=== PATIENT | male | born 1935 | race Caucasian/White ===

== ENCOUNTER 2016-08-06 16:51 | Emergency (ER) ==
[2016-08-06] MEDS ORDERED: ZOFRAN IV ONE ×2 (17:19→20:56)
--- NOTE | 2016-08-06 17:28 | PROVIDER DOCUMENTATION ---
HPI-Male Problem <Ramiro Carl - Last Filed: 08/06/16 22:12> <Hank Hernandez - Last Filed: 08/06/16 23:03> - General Source: patient, family - History of Present Illness-Male Location of Complaint: reports: left flank Radiation: reports: scrotal Quality of Pain: reports: sharp Onset/Duration: reports: 1-3 hours ago Timing: reports: still present Urinary Symptoms: reports: no symptoms Associated Symptoms: reports: other (prior prostate CA, s/p prostatectomy) Associated Symptoms: reports: vomiting <Lianet Hammonds - Last Filed: 08/07/16 11:23> - General Chief Complaint: Flank Pain Stated Complaint: SEVERE ABD PAIN,VOMITING Time Seen by Provider: 08/06/16 17:05 Allergies/Adverse Reactions: Patient Allergies Allergy/AdvReac Type Severity Reaction Status Date / Time No Known Allergies Allergy Verified 08/06/16 17:18 Home Medications: Home Medication List Medication Instructions Recorded Confirmed Last Taken Type Aspirin 81 mg PO DAILY 02/11/15 08/06/16 08/06/16 07:00 History Esomeprazole [Nexium] 40 mg PO BID 02/11/15 08/06/16 08/06/16 07:00 History Hydrocortisone AC/Lidocaine 1 each RC DIRECTED PRN PRN 02/11/15 03/07/16 History [Anamantle Hc Forte Cream Kit] Metformin [Glucophage] 500 mg PO BID 02/11/15 08/06/16 08/06/16 07:00 History Multivitamin [Multi-Vitamin Daily] 1 each PO DAILY 02/11/15 08/06/16 08/06/16 07 :00 History Warfarin [Coumadin] 2.5 mg PO QHS 02/11/15 08/06/16 08/05/16 20:00 History Warfarin [Coumadin] 5 mg PO QHS 02/11/15 08/06/16 08/04/16 20:00 History SIMVAstatin [Zocor] 40 mg PO QHS #30 tablet 02/12/15 08/06/16 08/05/16 20:00 Rx Fluticasone 50 Mcg Nasal Drag[place] 2 spray NEVAEH HS #0 bottle 03/09/16 08/06/16 20:00 Rx [Flonase] Ciprofloxacin HCl [Cipro] 500 mg PO BID #14 tablet 08/06/16 Unknown Rx Hydrocodone/Acetaminophen [[place] 1 each PO TID PRN PRN #15 tablet 08/06/16 Unknown Rx 7.5-325 Tablet] Ondansetron Odt [Zofran 4 mg Odt] 4 mg PO Q6H PRN PRN #10 tablet 08/06/16 Unknown Rx Tamsulosin [Flomax] 0.4 mg PO DAILY #7 capsule 08/06/16 Unknown Rx - History of Present Illness-Male Nature of Presenting Problem: 81 yo with sudden onset of L flank pain radiating down to the groin. Started about 3:30 pm today. No prior episodes of flank pain, no hx kidney stones. Vomited x1. Long standing problems with nausea. (Lianet Hammonds) Review of Systems - Adult - REVIEW OF SYSTEMS - ADULT Constitutional: reports: no symptoms reported Eyes: reports: no symptoms reported, other (s/p cataract repair) Ears, Nose, Mouth & Throat: reports: no symptoms reported Cardiovascular: reports: no symptoms reported Respiratory: reports: no symptoms reported Gastrointestinal: reports: abdominal pain, nausea, vomiting Genitourinary: reports: flank pain Neurological: reports: other (multipe prior CVAs) Psychiatric: reports: no symptoms reported <Lianet Hammonds - Last Filed: 08/07/16 11:23> Past History - Adult - PAST MEDICAL HISTORY-ADULT Review of Records: reports: Medications Reviewed Major Childhood Illnesses: reports: denies history Cardiovascular: reports: A-Fib, CAD, HTN Respiratory: reports: denies history Gastrointestinal: reports: GERD (Stern's Esophagus), ulcer Obstetrical/Gynecological: reports: denies history Genitourinary: reports: prostate cancer Musculoskeletal: reports: denies history Neurological: reports: CVA, Seizures/Epilepsy, TIA Endocrine/Immune: reports: Diabetes Other Conditions: reports: deaf/hard of hearing - PRIOR SURGERIES/PROCEDURES Surgical/Procedure History: reports: CABG, cardiac stent, tonsillectomy, other ( sinus, TURP, quad bypass) - IMMUNIZATION STATUS Childhood Immunizations: See Nurse Assessment Flu Vaccine: See Nurse Assessment - FAMILY HISTORY Family History: reviewed, not pertinent <Lianet Hammonds - Last Filed: 08/07/16 11:23> Physical Exam-General - PHYSICAL EXAM-ADULT Initial Vital Signs Reviewed: Yes - CONSTITUTIONAL General Appearance: alert, moderate distress - EYES Eyes: PERRL/EOMI - HEAD, EARS, NOSE, MOUTH & THROAT HENMT: normocephalic/atraumatic, normal ENT inspection - NECK Neck: non-tender, full range of motion, supple - RESPIRATORY Respiratory: chest non-tender, crackles (at bases bilaterally) <Lianet Hammonds - Last Filed: 08/07/16 11:23> Progress - REASSESSMENT Reassessment #1 Time Reassessed: 22:12 (pt aware of ct report) Status: improving - CT/MRI 1 CT Study: Renal Stone Impression: Abnormal (non obst renal calculi//gallstone w/no cholecystitis/// small stable lower aorta 3.1 cm /some stranding lt kidney), See EMR Report <Ramiro Carl - Last Filed: 08/06/16 22:12> - REASSESSMENT Reassessment #2 Time Reassessed: 22:35 Status: improving (Dr. Carl discussed results of pt's labs/CT and POC for pt's discharge.) - CT/MRI 2 CT Study: Abdomen, Pelvis Impression: See EMR Report (Ucosal thickening and mild inflammatory stranding associated with the L renal pelvis and L ureter suggesting possible infection; Nonobstructing nephrolithiasis bilaterally; Other incidental/nonacute findings detailed in report.) CT Results: See report - CHANGE OF SHIFT REPORT (ED Provider) Report Given and Care Transferred to:: Dr. Carl Time of Transfer: 20:00 Items Pending: CT/MRI Results <Hank Hernandez - Last Filed: 08/06/16 23:03> <Lianet Hammonds - Last Filed: 08/07/16 11:23> - PLAN OF CARE/RESULTS Progress/Plan/Lab Results: Vital Signs - 24 hr 08/06/16 16:58 Temperature 97.3 F L Pulse Rate 61 Respiratory 20 Rate Blood Pressure 136/74 O2 Sat by Pulse 96 Oximetry Orders Category Date Time Status Saline Loc DIRECTED Care 08/06/16 17:17 Active NPO Diet 08/06/16 17:17 Active CHEST-PORTABLE [RAD] Stat Exams 08/06/16 17:[address] ABD/PELVIS W/ IV CONT ONLY [CT] Stat Exams 08/06/16 18:25 Draft AMYLASE [CHEM] Stat Lab 08/06/16 17:36 Completed CBC WITH ELECTRONIC DIFF [HEME] Stat Lab 08/06/16 17:36 Completed COMPREHENSIVE METABOLIC PANEL [CHEM] Stat Lab 08/06/16 17:36 Completed LIPASE [CHEM] Stat Lab 08/06/16 17:36 Completed PROTIME WITH INR [COAG] Stat Lab 08/06/16 17:36 Completed URINALYSIS W/POSS RFLX CULT [URINALYSIS] Stat Lab 08/06/16 20:30 Completed 0.9% Sodium Chloride Inj [Ns] 500 ml Med 08/06/16 19:54 Discontinued IV 999 mls/hr Hydromorphone [Dilaudid] Med 08/06/16 20:56 Discontinued 1 mg IV NOW ONE Morphine Med 08/06/16 18:21 Discontinued 2 mg IV NOW ONE Ondansetron [Zofran] Med 08/06/16 17:19 Discontinued 4 mg IV NOW ONE Ondansetron [Zofran] Med 08/06/16 20:56 Discontinued 4 mg IV NOW ONE EKG [EKG] Stat Ther 08/06/16 17:18 Ordered Laboratory Tests 08/06/16 08/06/16 08/06/16 17:36 17:36 17:36 WBC 5.79 RBC 4.01 L Hgb 13.2 L Hct 39.8 L MCV 99.3 H MCH 32.9 H MCHC 33.2 RDW Std Deviation 13.3 Plt Count 162 MPV 11.8 H Neut % (Auto) 61.2 Lymph % (Auto) 29.4 Coal % (Auto) 8.5 Eos % (Auto) 0.7 Baso % (Auto) 0.2 Neut # (Auto) 3.55 Lymph # (Auto) 1.70 Coal # (Auto) 0.49 Eos # (Auto) 0.04 Baso # (Auto) 0.01 PT 25.6 H INR 2.39 Sodium 138 Potassium 3.8 Chloride 101 Carbon Dioxide 22 L Anion Gap 15 BUN 24 H Creatinine 1.1 Estimated GFR/1.73 m2 > 60 BUN/Creatinine Ratio 22 Glucose 193 H Calculated Osmolality 285 Calcium 9.1 Total Bilirubin 0.71 AST 32 ALT 37 Alkaline Phosphatase 71 Total Protein 6.8 Albumin 3.9 Globulin 2.9 Albumin/Globulin Ratio 1.3 Amylase 114 Lipase Urine Source Urine Color Urine Turbidity Urine pH Ur Specific [place] Urine Protein Ur Glucose (Stick) Ur Ketones (Stick) Urine Blood Urine Nitrite Urine Bilirubin Urobilinogen Dipstick Urine Leukocytes Urine WBC (Auto) Urine RBC (Auto) U Epithel Cells (Auto) Urine Bacteria (Auto) 08/06/16 08/06/16 17:36 20:30 WBC RBC Hgb Hct MCV MCH MCHC RDW Std Deviation Plt Count MPV Neut % (Auto) Lymph % (Auto) Coal % (Auto) Eos % (Auto) Baso % (Auto) Neut # (Auto) Lymph # (Auto) Coal # (Auto) Eos # (Auto) Baso # (Auto) PT INR Sodium Potassium Chloride Carbon Dioxide Anion Gap BUN Creatinine Estimated GFR/1.73 m2 BUN/Creatinine Ratio Glucose Calculated Osmolality Calcium Total Bilirubin AST ALT Alkaline Phosphatase Total Protein Albumin Globulin Albumin/Globulin Ratio Amylase Lipase 13 Urine Source CLEAN CATCH Urine Color YELLOW Urine Turbidity CLEAR Urine pH 5.5 Ur Specific [place] 1.021 Urine Protein 50 A Ur Glucose (Stick) 500 A Ur Ketones (Stick) TRACE A Urine Blood LARGE A Urine Nitrite NEGATIVE Urine Bilirubin NEGATIVE Urobilinogen Dipstick NORMAL Urine Leukocytes NEGATIVE Urine WBC (Auto) <10 Urine RBC (Auto) TNTC A U Epithel Cells (Auto) <10 Urine Bacteria (Auto) NEGATIVE (Hank Hernandez) Departure - Departure Time of Disposition Order: 22:14 Certified Medical Emergency: Emergent <Ramiro Carl - Last Filed: 08/06/16 22:12> - Departure Time of Disposition Order: 22:21 Certified Medical Emergency: Emergent <Hank Hernandez - Last Filed: 08/06/16 23:03> - Departure Time of Disposition Order: 23:00 <Lianet Hammonds - Last Filed: 08/07/16 11:23> - Departure DIAGNOSIS: Renal colic, Back pain of thoracolumbar region Disposition: HOME 01 Condition: Stable Additional Instructions: ED Follow Up Instructions: You have been treated by a care provider in the Emergency Department. These instructions are being provided to you so you can have an understanding of how to care for yourself upon discharge. Upon discharge from the Emergency Department, you are responsible for making arrangements for follow-up care by a physician of your choice. Take all prescribed medications as directed. Return to the Emergency Department immediately for any new or worsening symptoms. You may call the Physician Referral phone number at [phone] to obtain a list of Physicians who are taking new patients. Prescriptions: Ciprofloxacin HCl [Cipro] 500 mg PO BID #14 tablet Tamsulosin [Flomax] 0.4 mg PO DAILY #7 capsule Hydrocodone/Acetaminophen [[place] 7.5-325 Tablet] 1 each PO TID PRN PRN #15 tablet PRN Reason: Pain Ondansetron Odt [Zofran 4 mg Odt] 4 mg PO Q6H PRN PRN #10 tablet PRN Reason: Nausea And Vomiting Referrals: Gerardo Santana MD [Primary Care Provider] - Renetta Richey MD [STAFF PHYSICIAN] - Marcello Lawrence MD [STAFF PHYSICIAN] - Honorio Zeng MD [STAFF PHYSICIAN] - Instructions: Renal Colic, [id number], Back Pain, Adult, [id number] Attestation - Scribe Verification/Attestation Scribe:: Hank Hernandez Acting as Scribe for:: Ramiro Carl Scribe documention review:: This chart was documented by a scribe and accurately reflects the service the provider performed and the decisions made by the provider. <Hank Hernandez - Last Filed: 08/06/16 23:03> Physician Attestation
[2016-08-06 17:52] LABS: MANUAL DIFF NEEDED? NO
[2016-08-06 18:02] LABS: BASO% 0.2 % (0.0-0.8); EOS# 0.04 X1000 (0.0-0.7); EOS% 0.7 % (0.0-10.0); HEMATOCRIT 39.8 % (42.0-52.0); HEMOGLOBIN 13.2 g/dL (14.0-18.0); LYMPH% 29.4 % (20.5-51.1); MCH 32.9 PG (27-31); MCHC 33.2 g/dL (33-37); MCV 99.3 FL (81-99); MONO# 0.49 X1000 (0.11-0.59); MONO% 8.5 % (1.7-9.3); MPV 11.8 FL (7.4-10.4); NEUT% 61.2 % (42.2-75.2); PLT 162 X1000 (130-400); RBC 4.01 XMIL (4.7-6.1)
[2016-08-06] MEDS ORDERED: MORPHINE IV ONE (18:21)
[2016-08-06 18:24] LABS: AGAP 15; ALBUMIN 3.9 g/dL (3.5-5.0); ALKALINE PHOSPHATASE 71 U/L (32-122); AMYLASE 114 U/L (20-200); BUN 24 mg/dL (8-22); CALCIUM 9.1 mg/dL (8.8-10.2); CHLORIDE 101 mmol/L (98-107); COSMO 285; GOT 32 U/L (10-34); GPT 37 U/L (10-44); POTASSIUM 3.8 mmol/L (3.5-5.1); SODIUM 138 mmol/L (136-145); TCO2 22 mmol/L (25-35); TOTAL BILIRUBIN 0.71 mg/dL (0.20-1.00); TOTAL PROTEIN 6.8 g/dL (6.3-8.3)
--- NOTE | 2016-08-06 18:33 | ED EKG INTERP ---
EKG Interpretation - EKG Time of EKG reading by physician:: 17:33 EKG Read and Signed by:: Edin Snow EKG Interpretation (*Must complete 3 of following elements*): Normal Rate: 61 Rhythm: NSR Attestation - Scribe Verification/Attestation Scribe:: Hank Hernandez Acting as Scribe for:: Edin Snow Scribe documention review:: This chart was documented by a scribe and accurately reflects the service the provider performed and the decisions made by the provider. Physician Attestation
[2016-08-06 18:52] LABS: INR 2.39; PROTIME 25.6 Seconds (9.2-11.7)
[2016-08-06] MEDS ORDERED: NS 500 ML IV ONE (19:54)
[2016-08-06 20:30] LABS: URINE CULTURE NEEDED? NO; URINE MICRO REVIEW NEEDED? NO; URINE SOURCE CLEAN CATCH
[2016-08-06 20:46] LABS: UR EPITHELIAL CELLS <10 /HPF (<10); URINE BACTERIA NEGATIVE /HPF; URINE RBC TNTC /HPF (<10); URINE WBC <10 /HPF (<10)
[2016-08-06 20:53] LABS: BILIRUBIN URINE NEGATIVE (NEGATIVE); COLOR YELLOW
[2016-08-06 20:54] LABS: BLOOD URINE LARGE (NEGATIVE); LEUKOCYTES URINE NEGATIVE (NEGATIVE); NITRITE URINE NEGATIVE (NEGATIVE); PH URINE 5.5; PROTEIN URINE 50 mg/dL (NEGATIVE); SP GRAVITY URINE 1.021; UROBILINOGEN URINE NORMAL (NORMAL)
[2016-08-06] MEDS ORDERED: DILAUDID IV ONE (20:56)
--- NOTE | 2016-08-06 21:44 | Diag Imaging Result Document ---
PROCEDURE NAME: CT ABD/PELVIS W/ IV CONT ONLY - 08/06/2016 CT ABDOMEN AND PELVIS WITH IV CONTRAST: COMPARISON: None available. FINDINGS: There are fibrotic changes at the lung bases. There is a moderate to large sized hiatal hernia. There is suggestion of diffuse hepatic steatosis. The adrenal glands are somewhat thickened suggesting mild hyperplasia. There are a few small calcified stones layering in the gallbladder lumen. There is no evidence of cholecystitis by CT. There are couple renal cysts bilaterally. There are several nonobstructing intrarenal stones bilaterally. There appears to be mucosal thickening involving the left renal pelvis, which is mildly prominent. There is also stranding along the course of the left ureter. No well-defined stone can be identified. Consider urinary tract infection. The urinary bladder is grossly unremarkable, however. There is a tiny left inguinal hernia that contains only fat. There is no evidence of bowel obstruction. There has been a previous prostatectomy. There is a small infrarenal abdominal aortic aneurysm measuring up to 3.1 cm. 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 There are several wedge deformities involving the spine of unknown acuity but probably chronic. This includes, L3, L4, and T12. IMPRESSION: 1. Mucosal thickening and mild inflammatory stranding associated with the left renal pelvis and left ureter suggesting possible infection. 2. Nonobstructing nephrolithiasis bilaterally. 3. Other incidental/nonacute findings detailed above.
[2016-08-06 22:27] LABS: GLUCOSE URINE 500 mg/dL (NEGATIVE); TURBIDITY URINE HAZY (CLEAR)
[2016-08-06 22:45] VITALS: BP 129/88
--- NOTE | 2016-08-06 22:52 | Diag Imaging Result Document ---
PROCEDURE NAME: CHEST-PORTABLE - 08/06/2016 FRONTAL RADIOGRAPH OF THE CHEST: COMPARISON: 03/07/2016. FINDINGS: There is stable prominent lung markings at the left lung base suggesting fibrosis most likely. The lungs are clear otherwise. There is no definite pleural fluid collection. Cardiac silhouette and central vasculature are grossly unremarkable. IMPRESSION: Stable interstitial thickening at the left lung base suggesting likely fibrosis.
[2016-08-06] MEDS ORDERED: ZOFRAN ODT PO ONE (22:54)
[2016-08-06] MEDS ORDERED: PERCOCET-10 PO ONE (22:54)
--- NOTE | 2016-08-08 06:35 | EKG Report ---
Test Performed on : 08/06/2016 5:33:08 PM Test Reason : abdominal pain Blood Pressure : / mmHG Vent. Rate : 061 BPM Atrial Rate : 061 BPM P-R Int : 198 ms QRS Dur : 090 ms QT Int : 430 ms P-R-T Axes : 048 043 073 degrees QTc Int : 432 ms Normal sinus rhythm. Normal ECG When compared with ECG of 07-MAR-2016 13:52, No significant change was found Unconfirmed Result
== END 2016-08-06 23:19 | disposition home or self-care (01) ==
LOC: ED 16:51
DX: N20.0 Calculus of kidney (principal); M54.6 Pain in thoracic spine; M54.5 Low back pain; R10.9 Unspecified abdominal pain; R10.30 Lower abdominal pain, unspecified; R11.2 Nausea with vomiting, unspecified; I48.91 Unspecified atrial fibrillation; I25.10 Atherosclerotic heart disease of native coronary artery without angina pectoris; I10 Essential (primary) hypertension; K21.9 Gastro-esophageal reflux disease without esophagitis; K22.70 Barrett's esophagus without dysplasia; E11.9 Type 2 diabetes mellitus without complications; H91.90 Unspecified hearing loss, unspecified ear; Z79.01 Long term (current) use of anticoagulants; Z79.82 Long term (current) use of aspirin; Z79.899 Other long term (current) drug therapy; Z85.46 Personal history of malignant neoplasm of prostate; Z90.79 Acquired absence of other genital organ(s); Z86.73 Personal history of transient ischemic attack (TIA), and cerebral infarction without residual deficits; Z95.1 Presence of aortocoronary bypass graft; Z95.5 Presence of coronary angioplasty implant and graft
CPT/HCPCS: 71010; 74177; 80053; 81001; 82150; 83690; 85025; 85610; 93005; 96374; 96375; J2270; J2405; J7040; Q9967